=== PATIENT | male | born 1930 | race Caucasian/White ===

== ENCOUNTER 2018-09-29 14:09 | Emergency (ER) | payer MEDICARE ==
[2018-09-29 15:13] LABS: APPEARANCE,URINE Cloudy (CLEAR); BILIRUBIN,URINE Negative (NEGATIVE); COLOR,URINE Yellow (YELLOW); GLUCOSE, URINE (UA) Negative (NEGATIVE); KETONES,URINE Negative (NEGATIVE); LEUKOCYTE ESTERASE ,URINE Large (NEGATIVE); NITRATE,URINE Positive (NEGATIVE); OCCULT BLOOD,URINE Large (NEGATIVE); PROTEIN,URINE POS 2+ mg/dL (NEGATIVE); UROBILINOGEN,URINE 0.2 mg/dL (0.2-1.0)
[2018-09-29 15:23] LABS: BACTERIA,URINE Few /HPF (None Seen)
[2018-09-29 15:24] LABS: SQUAMOUS EPITHELIAL CELL,UR 0-2 /HPF (0-2)
[2018-09-29] MEDS ORDERED: LIDOCAINE HCL-MPF 1% 2ML VIAL ONE (15:29)
[2018-09-29] MEDS ORDERED: CEFTRIAXONE SODIUM 1 GM ONE (15:29)
== END 2018-09-29 16:12 | disposition home or self-care (01) ==
LOC: EDH 14:09
DX: R33.9 Retention of urine, unspecified (principal); N39.0 Urinary tract infection, site not specified
CPT/HCPCS: 51702; 81001; 96372; 99284; J0696; J3490

== ENCOUNTER 2018-12-22 15:47 | Inpatient (IN) | payer MEDICARE ==
[~2018-12-22] VITALS: Ht 180.3 cm; Wt 100.9 kg
[2018-12-22] MEDS ORDERED: LACTULOSE 20 GM/30 ML UDCUP PO PRN (17:00)
[2018-12-22] MEDS ORDERED: CEFTRIAXONE SODIUM 1 GM IV SCH (17:00)
[2018-12-22] MEDS ORDERED: ONDANSETRON HCL 4 MG/2 ML VIAL IV PRN (17:00)
[2018-12-22] MEDS ORDERED: ACETAMINOPHEN 325 MG TAB PO PRN ×2 (17:00)
[2018-12-22] MEDS ORDERED: HYDRALAZINE HCL 20 MG/ML VIAL IV PRN (17:30)
[2018-12-22 17:31] LABS: BASOPHILS % (AUTO) 0.7 % (0.0-5.0); EOSINOPHILS % (AUTO) 1.9 % (0.0-8.0); HEMATOCRIT 31.7 % (42-54); LYMPHOCYTES % (AUTO) 17.9 % (21.0-51.0); MEAN CORPUSCULAR HEMOGLOBIN 32.2 pg (27.0-33.0); MEAN CORPUSCULAR HGB CONC 35.2 g/dL (32.0-36.0); MEAN CORPUSCULAR VOLUME 91.6 fL (79-99); MONOCYTES % (AUTO) 11.4 % (3.0-13.0); NEUTROPHILS % (AUTO) 68.1 % (40.0-77.0); PLATELET COUNT (AUTO) 349 K/uL (130-400); RED BLOOD CELL COUNT(AUTO) 3.46 MIL/uL (4.50-6.20); RED CELL DISTRIBUTION WIDTH 14.5 % (11.0-15.5); WHITE BLOOD COUNT (AUTO) 6.2 K/uL (4.8-10.8)
[2018-12-22 17:42] LABS: POTASSIUM 4.3 mmol/L (3.5-5.1)
[2018-12-22 17:47] LABS: ALBUMIN 3.4 g/dL (3.5-5.0); BILIRUBIN,TOTAL 0.5 mg/dL (0.2-1.0); TOTAL PROTEIN, SERUM 6.7 g/dL (6.0-8.3)
[2018-12-22 17:57] LABS: B-TYPE NATRIURETIC PEPTIDE 161 pg/mL (0-100)
[2018-12-22 18:17] LABS: BILIRUBIN,URINE NEGATIVE (NEGATIVE); COLOR,URINE YELLOW (YELLOW); GLUCOSE, URINE (UA) NEGATIVE (NEGATIVE); KETONES,URINE NEGATIVE (NEGATIVE); LEUKOCYTE ESTERASE ,URINE LARGE (NEGATIVE); NITRATE,URINE POSITIVE (NEGATIVE); OCCULT BLOOD,URINE MODERATE (NEGATIVE); PH,URINE 5.5 (5.0-8.0); PROTEIN,URINE NEGATIVE (NEGATIVE); UROBILINOGEN,URINE 0.2 mg/dL (0.2-1.0)
[2018-12-22 18:46] LABS: APPEARANCE,URINE CLOUDY (CLEAR)
[2018-12-22 19:00] LABS: BACTERIA,URINE Moderate /HPF (None Seen); SQUAMOUS EPITHELIAL CELL,UR 0-2 /HPF (0-2)
[2018-12-22] MEDS ORDERED: CEFTRIAXONE SODIUM 1 GM ONE (19:23)
--- NOTE | 2018-12-22 20:02 | NUR ---
REPORT RECEIVED FORM AMBER BARKER. PT ADMITTED FOR RECURRENT UTIS AND DIRECT ADMIT FROM DR. SHANI WILSON
[2018-12-22] MEDS ORDERED: FUROSEMIDE 10 MG/ML 4ML VIAL ONE (20:27)
[2018-12-22] MEDS ORDERED: FAMOTIDINE/PF 20 MG/2 ML VIAL IV ONE (20:28)
[2018-12-22] MEDS: FUROSEMIDE 10 MG/ML 4ML VIAL IVP SCH (21:00)
[2018-12-22] MEDS: FAMOTIDINE 20MG TAB 20 MG TAB PO SCH (21:00)
--- NOTE | 2018-12-22 21:36 | NUR ---
PT ARRIVED FROM ER. PT IS STABLE. AA03. HARD OF HEARING. GBW NOTED. ABLE TO STAND BUT REQUIRES ASSISTANCE TO AMBULATE. PT HAS PITTING EDEMA TO LOWER EXTREMITIES +3. NO SOB NOTED. NO CHEST PAIN. PT STATES WAS SENT FROM DR. MCLEOD OFFICE DUE TO RECURRENT UTI. HOLDEN IN PLACE.
[2018-12-22 21:49] VITALS: BP 138/73
[2018-12-22 23:54] VITALS: BP 107/64
[2018-12-23 04:00] VITALS: BP 137/65
[2018-12-23 07:45] VITALS: BP 112/78
[2018-12-23] MEDS: FUROSEMIDE 10 MG/ML 4ML VIAL IVP SCH ×2 (07:46→20:11)
[2018-12-23] MEDS: ENOXAPARIN SODIUM 40 MG/0.4 ML SYRINGE SQ SCH (07:46)
--- NOTE | 2018-12-23 08:00 | NUR ---
ASSESSMENT PT IS AAOX3 DENIES CP DENIES SOB DENIES NV NO COMPLAINTS, SITTING UPRIGHT AT BEDSIDE. CALL LIGHT WITHIN REACH. AM MEDS GIVEN. PENDING HOME MEDS TO BE BROUGHT IN.
[2018-12-23] MEDS ORDERED: FURO40TA5 PO (10:19)
[2018-12-23] MEDS ORDERED: CLOP75TA32 PO (10:19)
[2018-12-23] MEDS ORDERED: HYDR12.530 PO (10:19)
[2018-12-23] MEDS ORDERED: BICA50TA7 PO (10:19)
[2018-12-23] MEDS ORDERED: MOEX15TA3 PO (10:19)
[2018-12-23 13:05] VITALS: BP 127/62
[2018-12-23 15:30] VITALS: BP 117/68
--- NOTE | 2018-12-23 18:30 | NUR ---
STATUS NO COMPLAINTS DENIES PAIN. RESTING IN BED, CALL LIGHT WITHIN REACH.
[2018-12-23 19:58] VITALS: BP 120/69
[2018-12-23] MEDS: CEFTRIAXONE SODIUM 1 GM IV SCH (20:11)
[2018-12-23] MEDS: FAMOTIDINE 20MG TAB 20 MG TAB PO SCH (20:11)
[2018-12-23 23:33] VITALS: BP 136/72
[2018-12-24 04:36] LABS: MEAN CORPUSCULAR HEMOGLOBIN 31.3 pg (27.0-33.0); MEAN CORPUSCULAR HGB CONC 34.4 g/dL (32.0-36.0); MEAN CORPUSCULAR VOLUME 91.2 fL (79-99); PLATELET COUNT (AUTO) 363 K/uL (130-400); RED BLOOD CELL COUNT(AUTO) 3.29 MIL/uL (4.50-6.20); RED CELL DISTRIBUTION WIDTH 15.3 % (11.0-15.5); WHITE BLOOD COUNT (AUTO) 5.1 K/uL (4.8-10.8)
[2018-12-24 04:39] VITALS: BP 130/67
[2018-12-24 04:41] LABS: MAGNESIUM 1.8 mg/dL (1.80-2.40); POTASSIUM 3.2 mmol/L (3.5-5.1)
[2018-12-24 04:42] LABS: BAND NEUTROPHILS % (MANUAL) 20 % (0-2); BASOPHILS % (MANUAL) 4 % (0-2); LYMPHOCYTES % (MANUAL) 28 % (22-44); MAN.DIFF COMMENT-IMPRESSION MANUAL DIFFERENTIAL; MONOCYTES % (MANUAL) 8 % (2-9); PLATELET MORPHOLOGY COMMENT ADEQUATE; SEGMENTED NEUTROPHILS % 40 % (40-70)
[2018-12-24] MEDS ORDERED: POTASSIUM CHLORIDE 20 MEQ ERTAB PO ONE ×2 (07:07→20:09)
[2018-12-24] MEDS: FUROSEMIDE 10 MG/ML 4ML VIAL IVP SCH ×2 (07:13→20:04)
[2018-12-24] MEDS: ENOXAPARIN SODIUM 40 MG/0.4 ML SYRINGE SQ SCH (07:14)
[2018-12-24 07:30] VITALS: BP 129/59
--- NOTE | 2018-12-24 08:00 | NUR ---
ASSESSMENT PT IS AAOX3 DENIES CP DENIES SOB DENIES NV NO COMPLAINTS, RESTING SITTING AT BEDSIDE, CALL LIGHT WITHIN REACH. AM MEDS GIVEN.
--- NOTE | 2018-12-24 10:00 | NUR ---
DR MILES ROUNDED ORDERS RECEIVED
[2018-12-24 11:35] VITALS: BP 132/69
[2018-12-24 15:30] VITALS: BP 117/66
--- NOTE | 2018-12-24 18:00 | NUR ---
STATUS NO COMPLAINTS DENIES PAIN. SITTING IN CHAIR, CALL LIGHT WITHIN REACH. VISITOR AT BEDSIDE.
[2018-12-24] MEDS: FAMOTIDINE 20MG TAB 20 MG TAB PO SCH (20:03)
[2018-12-24] MEDS: CEFTRIAXONE SODIUM 1 GM IV SCH (20:04)
[2018-12-24] MEDS: POTASSIUM CHLORIDE 20 MEQ ERTAB PO PRN (20:12)
[2018-12-24] MEDS ORDERED: LIDOCAINE HCL-MPF 1% 2ML VIAL IV PRN (20:15)
[2018-12-24] MEDS ORDERED: POTASSIUM CHLORIDE 20MEQ/100ML 100 ML IV PRN (20:15)
[2018-12-24 20:16] VITALS: BP 119/59
[2018-12-25] VITALS: BP 146/69
[2018-12-25 03:55] VITALS: BP 142/65
[2018-12-25 04:07] LABS: HEMATOCRIT 31.2 % (42-54); MEAN CORPUSCULAR HEMOGLOBIN 31.9 pg (27.0-33.0); MEAN CORPUSCULAR HGB CONC 34.7 g/dL (32.0-36.0); MEAN CORPUSCULAR VOLUME 91.7 fL (79-99); PLATELET COUNT (AUTO) 356 K/uL (130-400); RED CELL DISTRIBUTION WIDTH 15.2 % (11.0-15.5); WHITE BLOOD COUNT (AUTO) 4.9 K/uL (4.8-10.8)
[2018-12-25 04:18] LABS: POTASSIUM 3.7 mmol/L (3.5-5.1)
[2018-12-25 04:43] LABS: BAND NEUTROPHILS % (MANUAL) 4 % (0-2); LYMPHOCYTES % (MANUAL) 40 % (22-44); MAN.DIFF COMMENT-IMPRESSION MANUAL DIFFERENTIAL; MONOCYTES % (MANUAL) 4 % (2-9); PLATELET MORPHOLOGY COMMENT ADEQUATE; SEGMENTED NEUTROPHILS % 52 % (40-70)
[2018-12-25] MEDS: POTASSIUM CHLORIDE 20 MEQ ERTAB PO PRN (05:34)
[2018-12-25 07:58] VITALS: BP 137/65
[2018-12-25] MEDS: FUROSEMIDE 10 MG/ML 4ML VIAL IVP SCH ×2 (09:45→21:41)
[2018-12-25] MEDS: ENOXAPARIN SODIUM 40 MG/0.4 ML SYRINGE SQ SCH (09:45)
[2018-12-25] MEDS ORDERED: RENAL DOSE IV SCH (10:00)
[2018-12-25] MEDS: MEROPENEM 1 GM VIAL IVP SCH ×2 (11:38→17:13)
[2018-12-25 11:55] VITALS: BP 136/61
--- NOTE | 2018-12-25 12:22 | NUR ---
DR. RIVERA IN ROOM SPEAKING WITH PT. RE:PLAN OF CARE AND DISCHARGE DISPOSITION TO [facility]. QUESTIONS ANSWERED BY DR. RIVERA, PT. VERBALIZED UNDERSTANDING.
--- NOTE | 2018-12-25 15:04 | NUR ---
[facility] VISITED WITH PATIENT. PATIENT AGREED TO [facility] SAID HE IS OKAY WITH THAT. SPOKE TO REP IN THE MORNING. CALLED BACK AGAIN AT 1500 SINCE I HAD NOT SEEN HER. SAID SHE IS ON HER WAY. PACKET IN CHART. PENDING MOT AND MED REC. Addendum: 12/25/18 at 1505 by JIMMY ROMERO RN CM Amended: Links added.
[2018-12-25 16:00] VITALS: BP 114/59
[2018-12-25] MEDS: FAMOTIDINE 20MG TAB 20 MG TAB PO SCH (21:41)
[2018-12-25 23:24] VITALS: BP 144/67
--- NOTE | 2018-12-26 01:41 | NUR ---
Heart Rhythm change Patient was in 1st degree heart block most of the night, at 0109 patient went into a complete heart block for approximately 6 seconds. Patient was asymptomatic at that time. Will continue to monitor.
[2018-12-26] MEDS: MEROPENEM 1 GM VIAL IVP SCH ×3 (01:53→16:59)
[2018-12-26 03:44] VITALS: BP 128/60
[2018-12-26 04:37] LABS: BASOPHILS % (AUTO) 1.1 % (0.0-5.0); HEMATOCRIT 30.3 % (42-54); LYMPHOCYTES % (AUTO) 27.5 % (21.0-51.0); MEAN CORPUSCULAR HEMOGLOBIN 32.2 pg (27.0-33.0); MEAN CORPUSCULAR HGB CONC 35.7 g/dL (32.0-36.0); MEAN CORPUSCULAR VOLUME 90.2 fL (79-99); MONOCYTES % (AUTO) 15.3 % (3.0-13.0); NEUTROPHILS % (AUTO) 54.1 % (40.0-77.0); PLATELET COUNT (AUTO) 381 K/uL (130-400); RED BLOOD CELL COUNT(AUTO) 3.36 MIL/uL (4.50-6.20); WHITE BLOOD COUNT (AUTO) 5.9 K/uL (4.8-10.8)
[2018-12-26 04:45] LABS: INR 1.08 (0.85-1.15); PARTIAL THROMBOPLASTIN TIME 34.1 SEC (26.3-35.5); PROTHROMBIN TIME 11.3 SEC (9.6-11.6)
[2018-12-26 04:51] LABS: B-TYPE NATRIURETIC PEPTIDE 123 pg/mL (0-100)
[2018-12-26 05:01] LABS: CARBON DIOXIDE 26 mmol/L (21-32); CHLORIDE 96 mmol/L (101-111); CREATININE 1.1 mg/dL (0.5-1.5); GLOMERULAR FILTR. RATE CALC 67 mL/min (>60); GLUCOSE,RANDOM 84 mg/dL (70-105); PHOSPHORUS 3.6 mg/dL (2.5-4.9); POTASSIUM 3.1 mmol/L (3.5-5.1); SODIUM SERUM 133 mmol/L (136-145); UREA NITROGEN, BLOOD 27 mg/dL (7-18)
[2018-12-26] MEDS: POTASSIUM CHLORIDE 10% ELIXIR 20 MEQ/15 ML UDCUP PO PRN ×2 (06:12→16:59)
[2018-12-26 08:09] VITALS: BP 138/64
[2018-12-26] MEDS: FUROSEMIDE 10 MG/ML 4ML VIAL IVP SCH (09:50)
[2018-12-26] MEDS: ENOXAPARIN SODIUM 40 MG/0.4 ML SYRINGE SQ SCH (09:51)
[2018-12-26 11:43] VITALS: BP 119/72
--- NOTE | 2018-12-26 13:21 | NUR ---
[facility] acceptance Per Meme lopez/ [facility], patient is accepted for today. Patient to transfer via EMS. Notified HIM of dc and requested chart to be copied. MOT completed, pending MD signature. CM to meet with PMD around 1400 for signature of PCS and MOT. Once completed CM to fax PCS to [facility] and patient will be ready for transfer. CD Addendum: 12/26/18 at 1330 by SHAMIR ALEXANDER CM Amended: Links added.
[2018-12-26 15:44] VITALS: BP 123/63
--- NOTE | 2018-12-26 16:34 | NUR ---
REPORT TO ASHLEY MONTOYA RN AT [facility].
--- NOTE | 2018-12-26 16:34 | NUR ---
[facility] CONSULT PATIENT ASSESSED REQUESTED: PATIENT PRESENTS WITH STAGE I PRESSURE ULCER TO LEFT BUTTOCK; SITE MEASURED AND [facility] RECOMMENDATIONS SUBMITTED. Addendum: 12/26/18 at 1639 by MONY ELLIOTT LVN LVN W Amended: Links added.
--- NOTE | 2018-12-26 16:58 | NUR ---
DR. Carlos MCLEOD IN ROOM SPEAKING WITH PT. RE:DISCHARGE DISPOSITION, PT. VERBALIZED UNDERSTANDING. QUESTIONS ANSWERED BY DR. MCLEOD.
--- NOTE | 2018-12-26 17:08 | NUR ---
EMS TRANSPORT REQUESTED, SPOKE WITH EVANGELINA. PCS FORM AND FACESHEET FAXED REQUESTED.
== END 2018-12-26 17:42 | DRG 291 ==
LOC: EDH 15:47 → OBSVTOIN 15:48 → EDHIP 15:48 → 2AH 21:38
PROVIDERS: ADMIT Internal Medicine; ATTEND Internal Medicine
DX: I11.0 Hypertensive heart disease with heart failure (principal); I50.31 Acute diastolic (congestive) heart failure; N39.0 Urinary tract infection, site not specified; Z16.24 Resistance to multiple antibiotics; N40.0 Benign prostatic hyperplasia without lower urinary tract symptoms; E66.01 Morbid (severe) obesity due to excess calories; C61 Malignant neoplasm of prostate; I34.0 Nonrheumatic mitral (valve) insufficiency; N40.1 Benign prostatic hyperplasia with lower urinary tract symptoms; Z96.653 Presence of artificial knee joint, bilateral; B96.5 Pseudomonas (aeruginosa) (mallei) (pseudomallei) as the cause of diseases classified elsewhere; N39.498 Other specified urinary incontinence; Z85.46 Personal history of malignant neoplasm of prostate; Z85.820 Personal history of malignant melanoma of skin; Z68.31 Body mass index [BMI] 31.0-31.9, adult
CPT/HCPCS: 36415; 71045; 80048; 80053; 81001; 83605; 83735; 83880; 84100; 84145; 85025; 85610; 85730; 87040; 87077; 87088; 87186; 93005; 93306; G0378; J0696; J1650; J1940; J2185; J3490